=== PATIENT | male | born 1945 | race Caucasian/White ===

== ENCOUNTER 2017-08-09 07:15 | Outpatient (CLI) | payer MEDICARE, BC ==
--- NOTE | 2017-08-09 15:20 | NM ---
NUCLEAR MEDICINE PARATHYROID SCAN WITH SPECT AND CT OF NECK: DATE: 08/09/17. HISTORY: A 72-year-old male with hyperparathyroidism. COMPARISON: None. TECHNIQUE: 23 mCi of Technetium 99m-sestamibi injected IV. Immediate, 1-hour, and 2 hour delayed planar scintigraphic images obtained from anterior, right anter ior oblique, and left anterior oblique, views centered in the neck, including the lower head and uppe r chest. CT of the neck performed through the same levels. SPECT images in axial, coronal, and sagittal planes, fused with CT images in those same planes (fusio n study). 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 There is uptake in a normal-size right lobe of the thy roid gland. There is uptake on the immediate and 1 and 2 hour delayed images, of a small 1 x 0.8 cm paratracheal nodule in the left anterior lower neck, slightly superior and slightly posterior to the left clavicular head, with no intrinsic iodine (no increased density on the noncontrast CT images, un like the right thyroid lobe). This is a very good candidate for parathyroid adenoma. IMPRESSION: 1. Small nodule in the left anterior lower neck is a very good candidate for ectopic parathyroid darlene noma. 2. Status post left thyroid lobectomy. POS: [facility]
== END 2017-08-09 07:16 | disposition home or self-care (01) ==
LOC: NM 07:15
PROVIDERS: ATTEND Internal Medicine
DX: E21.3 Hyperparathyroidism, unspecified (principal); E04.1 Nontoxic single thyroid nodule; Z90.2 Acquired absence of lung [part of]
CPT/HCPCS: 78072; A9500

== ENCOUNTER 2021-02-22 15:17 | Outpatient (CLI) | payer MEDICARE, BC ==
[2021-02-23 15:23] LABS: SARS-CoV-2 PCR by NAA Not Detected (NotDetected)
== END 2021-02-22 15:18 | disposition home or self-care (01) ==
LOC: LABBT 15:17
PROVIDERS: ATTEND Ophthalmology Retina Specialist
DX: Z01.812 Encounter for preprocedural laboratory examination (principal); H54.7 Unspecified visual loss; Z20.822 Contact with and (suspected) exposure to COVID-19
CPT/HCPCS: U0003; U0005

== ENCOUNTER 2021-02-25 06:46 | Day surgery (SDC) | payer MEDICARE, BC ==
[~2021-02-25 06:46] MED LIST: Cyclopentolate 1% Opth Drop 2 ML BOT FS SCH; Fentanyl 100 MCG/2 ML VIAL ONE; Fluorouracil 100 MG, Enoxaparin Sodium 25 MG, EPINEPHrine 0.3 MG in Ophthalmic Irrigati... IRR SCH; Midazolam HCl 2 mg/2 ml Vial ONE; PROPOFOL 20 ML ONE; Phenylephrine 2.5% Ophth Soln 5 ML BOT FS SCH
[2021-02-25] MEDS ORDERED: Cyclopentolate W/ Phenylephrin 40 DROP/2 ML BOT ONE (07:11)
[2021-02-25] MEDS ORDERED: Phenylephrine 2.5% Ophth Soln 5 ML BOT ONE ×2 (07:11→07:12)
[2021-02-25] MEDS ORDERED: Cyclopentolate 1% Opth Drop 2 ML BOT ONE (07:12)
[2021-02-25] MEDS ORDERED: Maxitrol 0.1% Opth Oint 3.5 GM TUBE ONE (08:02)
[2021-02-25] MEDS ORDERED: CEFAZOLIN 1 GM VIAL ONE (08:02)
[2021-02-25] MEDS ORDERED: Triamcinolone 40 MG/ML VIAL ONE (08:02)
[2021-02-25] MEDS ORDERED: Bupivacaine PF 0.75% SDV 10 ML ONE (08:02)
[2021-02-25] MEDS ORDERED: Lidocaine 1% PF 5 ML VIAL ONE (08:02)
[2021-02-25] MEDS ORDERED: Lidocaine 4% PF 5 ML AMP ONE (08:02)
== END 2021-02-25 09:20 | disposition home or self-care (01) ==
LOC: SDC 06:46
PROVIDERS: ATTEND Ophthalmology Retina Specialist
PROC: 08T43ZZ Resection of Right Vitreous, Percutaneous Approach (ICD-10-PCS; principal; 2021-02-25)
PROC: 08NE3ZZ Release Right Retina, Percutaneous Approach (ICD-10-PCS; 2021-02-25)
DX: H35.371 Puckering of macula, right eye (principal); E78.5 Hyperlipidemia, unspecified; M19.90 Unspecified osteoarthritis, unspecified site; Z87.891 Personal history of nicotine dependence; Z88.2 Allergy status to sulfonamides
CPT/HCPCS: J0171; J0690; J1650; J2250; J2704; J3010; J3301; J3490; J9190

== ENCOUNTER 2023-08-09 10:42 | Outpatient (CLI) | payer MEDICARE, BC ==
[2023-08-09 12:12] LABS: Hematocrit 42.8 % (38.8-50.0); Hemoglobin 15.2 g/dL (13.5-17.5); Mean Corpuscular HGB CONC 35.5 g/dL (32.0-36.0); Mean Corpuscular Hemoglobin 32.1 pg (27.0-33.0); Mean Corpuscular Volume 90.5 fl (81.2-95.1); Mean Platelet Volume 10.4 fl (7.4-10.4); Platelet Count 218 10x3/uL (150-450); RBC Distribution Width 11.6 % (11.5-14.5); Red Blood Cell (RBC) Count 4.73 10x6/uL (4.32-5.72); White Blood Cell (WBC) Count 4.6 10x3/uL (3.5-10.5)
[2023-08-09 12:27] LABS: Anion Gap 14 mmol/L (10-20); BUN (Urea Nitrogen) 16 mg/dL (8.4-25.7); Calc. Creatinine Clearance 0 mL/min (70-130); Calcium 9.8 mg/dL (7.8-10.44); Carbon Dioxide 26 mmol/L (23-31); Chloride 103 mmol/L (98-107); Estimated GFR 87; Glucose 96 mg/dL (83-110); Sodium 138 mmol/L (136-145)
[2023-08-09 12:28] LABS: PTT 29.6 sec (22.0-33.0); Prothrombin Time 11.2 sec (9.5-12.1)
== END 2023-08-09 10:43 | disposition home or self-care (01) ==
LOC: LABBT 10:42
PROVIDERS: ATTEND Urology
DX: Z01.812 Encounter for preprocedural laboratory examination (principal); N20.1 Calculus of ureter
CPT/HCPCS: 80048; 85027; 85610; 85730; 87086

== ENCOUNTER 2023-08-15 08:19 | Day surgery (SDC) | payer MEDICARE, BC ==
[2023-08-09 11:22] VITALS: BMI 31.1
[2023-08-15] MEDS ORDERED: fentaNYL PF 100 MCG/2 ML SYRINGE ONE ×2 (10:17→10:49)
[2023-08-15] MEDS ORDERED: PROPOFOL 20 ML ONE (10:17)
[2023-08-15] MEDS ORDERED: Iopamidol 15 ML ONE (10:35)
[2023-08-15] MEDS ORDERED: Sodium Chloride 0.9% 100 ML ONE (10:40)
[2023-08-15] MEDS ORDERED: CEFAZOLIN 2 GM VIAL ONE (10:40)
[2023-08-15] MEDS ORDERED: Dexamethasone 20 MG/5 ML VIAL ONE (11:02)
[2023-08-15] MEDS ORDERED: Glycopyrrolate 0.2 MG/ML 5 ML SYRINGE ONE (11:02)
[2023-08-15] MEDS ORDERED: Ondansetron PF 4 MG/2 ML Vial ONE (11:02)
[2023-08-15] MEDS ORDERED: ePHEDrine Sulfate 50 MG/10 ML VIAL ONE ×2 (11:03→14:21)
[2023-08-15] MEDS ORDERED: Iopamidol 45 ML ONE (12:24)
[2023-08-15] MEDS ORDERED: hydrALAZINE 20 MG/ML VIAL ONE (12:55)
== END 2023-08-15 15:00 | disposition home or self-care (01) ==
LOC: SDC 08:19
PROVIDERS: ATTEND Urology
PROC: 0TC68ZZ Extirpation of Matter from Right Ureter, Via Natural or Artificial Opening Endoscopic (ICD-10-PCS; principal; 2023-08-15)
PROC: 0T768DZ Dilation of Right Ureter with Intraluminal Device, Via Natural or Artificial Opening Endoscopic (ICD-10-PCS; 2023-08-15)
DX: N13.2 Hydronephrosis with renal and ureteral calculous obstruction (principal); N32.81 Overactive bladder; E78.00 Pure hypercholesterolemia, unspecified; Z96.651 Presence of right artificial knee joint; Z88.2 Allergy status to sulfonamides; Z79.899 Other long term (current) drug therapy
CPT/HCPCS: 52356; 74420; 82365; J0360; 88300; C2617; J1100; J2405; J2704; J3490; Q9967